=== PATIENT | female | born 1950 | race Hispanic/Latino ===

== ENCOUNTER 2017-06-17 16:46 | Inpatient (IN) | payer BC, MEDICARE ==
[2017-06-17 16:46] VITALS: BMI 26.7
--- NOTE | 2017-06-17 17:37 | ED PDOC ---
Arrival/HPI - General Chief Complaint: Dizziness/Lightheaded Time Seen by Provider: 06/17/17 17:36 Historian: Patient - History of Present Illness Narrative History of Present Illness (Text): 06/17/17 17:36 This 67 yo female with pmh hypotension, s/p gastric sleeve presents to this ED c/o syncope last night. Past Medical History - Infectious Disease Hx of Infectious Diseases: None - Tetanus Immunization Tetanus Immunization: Unknown - Reproductive Menopause: Yes - Past Medical History Past Medical History: No Previous - Cardiac Hx Hypertension: Yes - Pulmonary Hx Respiratory Disorders: Yes (Sarcoidosis) Hx Asthma: Yes Hx Sleep Apnea: Yes - Neurological Hx Transient Ischemic Attacks (TIA): Yes (x2) - HEENT Hx Cataracts: Yes (Removed from right eye with lens implant) - Renal Hx Renal Disorder: No - Endocrine/Metabolic Hx Diabetes Mellitus Type 2: Yes Hx Hypothyroidism: Yes Other/Comment: niddm - Hematological/Oncological Hx Blood Disorders: No - Integumentary Hx Dermatological Disorder: No - Musculoskeletal/Rheumatological Hx Musculoskeletal Disorders: Yes (Carpal tunnel) - Gastrointestinal Hx Gastrointestinal Disorders: No - Genitourinary/Gynecological Hx Genitourinary Disorders: No - Psychiatric Hx Psychophysiologic Disorder: Yes (Quit smoking 20yrs ago) Hx Anxiety: Yes Hx Depression: Yes Hx Substance Use: No - Surgical History Hx Section: Yes (x3) Hx Cholecystectomy: Yes Other/Comment: bilat carpal tunnel - Anesthesia Hx Anesthesia: Yes Hx Anesthesia Reactions: No Hx Malignant Hyperthermia: No - Suicidal Assessment Feels Threatened In Home Enviroment: No Family/Social History Smoking Status: Never Smoked Hx Alcohol Use: No Hx Substance Use: No Hx Substance Use Treatment: No Allergies/Home Meds Allergies/Adverse Reactions: Allergies No Known Allergies Allergy (Verified 06/17/17 17:07) Home Medications: Home Meds Medication Instructions Recorded Confirmed Rosuvastatin Calcium [Crestor] 10 mg PO DAILY 04/07/13 06/17/17 amLODIPine [Norvasc] 5 mg PO DAILY 03/25/14 06/17/17 Alprazolam [Xanax] 0.5 mg PO DAILY 06/17/17 06/17/17 Levothyroxine [Synthroid] 0.05 mcg PO DAILY 06/17/17 06/17/17 MetFORMIN [glucOPHAGE] 500 mg PO DAILY 06/17/17 06/17/17 Valsartan/Hydrochlorothiazide 1 each PO DAILY 06/17/17 06/17/17 [Diovan Hct 320-12.5 mg Tab] Physical Exam Vital Signs Temp Pulse Resp BP Pulse Ox 06/17/17 17:03 97.4 F L 76 16 80/52 L 96 Medical Decision Making ED Course and Treatment: 06/17/17 19:[address] Freeman who is covering for Dr. Suero. We reviewed labs, and chief complains. He agrees with admission for syncope. Re-evaluation Time: 21:24 Reassessment Condition: Re-examined, Improving,but remains with symptoms - Lab Interpretations Lab Results: 06/17/17 18:15 06/17/17 18:15 Lab Results 06/17/17 18:15: Sodium 139, Potassium 5.9 H* D, Chloride 104, Carbon Dioxide 23 , Anion Gap 19, BUN 36 H, Creatinine 1.9 H, Est GFR ( Amer) 32, Est GFR ( Non-Af Amer) 27, Random Glucose 95, Calcium 9.5, Total Bilirubin 0.2, AST 59 H, ALT 59 H, Alkaline Phosphatase 65, Lactate Dehydrogenase 395, Total Creatine Kinase 63, Troponin I < 0.01, NT-Pro-B Natriuret Pep 30.9, Total Protein 7.3, Albumin 4.5, Globulin 2.8, Albumin/Globulin Ratio 1.6 06/17/17 18:15: PT 10.2, INR 0.90 L, APTT 27.9 06/17/17 18:15: WBC 6.2, RBC 3.90, Hgb 11.7 L, Hct 34.9 L, MCV 89.5, MCH 30.0, MCHC 33.5, RDW 13.4, Plt Count 218, MPV 8.8, Gran % 61.4, Lymph % (Auto) 28.9, [place] % (Auto) 5.8, Eos % (Auto) 3.4, Baso % (Auto) 0.5, Gran # 3.83, Lymph # 1.8 , [place] # 0.4, Eos # 0.2, Baso # 0.03 06/17/17 17:29: POC Glucose (mg/dL) 82 I have reviewed the lab results: Yes Interpretation: Abnormal lab values - RAD Interpretation Narrative RAD Interpretations (Text): 06/17/17 21:19 [facility] Division of Radiology [address] [place] [address] Tel. no. Patient Name: RJ JOSHI Pt. Address: [address] [place] [address] Rec #: [id number] [place] [address]: Georgia Fried PA-C Pt Order Location: ED : 1950 Female Age: 67 Order #: [id number] Reason for exam: syncope CT Scan HEAD W/O CONTRAST Exam Date: 06/17/17 This imaging exam was performed at [facility] EXAM: CT Head Without Intravenous Contrast CLINICAL HISTORY: 67 years old, female; Pain; Headache; Headache not specified; Additional info: Syncope TECHNIQUE: Axial computed tomography images of the head/brain without intravenous contrast. All CT scans at this facility use one or more dose reduction techniques, viz.: automated exposure control; ma/kV adjustment per patient size (including targeted exams where dose is matched to indication; i.e. head); or iterative reconstruction technique. Coronal and sagittal reformatted images were created and reviewed. COMPARISON: No relevant prior studies available. FINDINGS: Brain: Mild atrophy. No intracranial hemorrhage. No mass. Few scattered foci of decreased attenuation within periventricular/subcortical white matter. No definite edema. Ventricles: No hydrocephalus. Bones/joints: No acute fracture. Soft tissues: Unremarkable. Sinuses: No acute sinusitis. Mastoid air cells: No mastoid effusion. Orbits: Unremarkable as visualized. IMPRESSION: 1. Nonspecific white matter changes. Acute infarction may be CT occult within first 24 hours. If a focal deficit persists, consider followup CT or MRI for further evaluation. 2. Incidental/non-acute findings are described above. Dictated By: Geronimo Cheema MD Dictated Date/Time: 06/17/172027 Signed By: Geronimo Cheema MD Date Signed: 2027 Transcribed By: GRACE Transcribe Date/Time : 06/17/172027 [id number] 06/17/17 21:20 Chest x-rays: NAD Radiology Orders: 06/17/17 19:07 HEAD W/O CONTRAST [CT] Stat CHEST PORTABLE [RAD] Stat - EKG Interpretation Interpreted by ED Physician: Yes (NSR @ [address] changes) Type: 12 lead EKG Comparison: No previous EKG avail. - Medication Orders Current Medication Orders: Albuterol Sulfate (Albuterol 0.5% Inhal Angela (2.5 Mg/0.5 Ml) Ud) 10 mg IH STAT STA Stop: 06/17/17 21:18 Alprazolam (Xanax) 0.5 mg PO DAILY PRN; Protocol PRN Reason: Anxiety Amlodipine Besylate (Norvasc) 5 mg PO DAILY MEJIA Dextrose (Dextrose 50% Inj) 50 ml IVP STAT STA Stop: 06/17/17 21:16 Hydrochlorothiazide (Microzide) 12.5 mg PO DAILY MEJIA Insulin Human Regular (Humulin R Low) 0 units SC ACHS MEJIA PRN Reason: Protocol Insulin Human Regular (Humulin R) 10 units SC ONCE ONE Stop: 06/17/17 21:18 Levothyroxine Sodium (Synthroid) 25 mcg PO DAILY MEJIA Sodium Polystyrene Sulfonate (Kayexalate Susp) 30 gm PO STAT STA Stop: 06/17/17 21:19 Valsartan (Diovan) 320 mg PO DAILY MEJIA Discontinued Medications Sodium Chloride (Sodium Chloride 0.9%) 1,000 mls @ 999 mls/hr IV .Q1H1M STA Stop: 06/17/17 20:07 Last Admin: 06/17/17 19:30 Dose: 999 mls/hr eMAR Start Stop Document 06/17/17 19:30 SF (Rec: 06/17/17 19:30 SF [id number]) Intravenous Solution Start Date 06/17/17 Start Time 19:30 End Date 06/17/17 End time 20:31 Total Infusion Time 61 Disposition/Present on Arrival - Present on Arrival Any Indicators Present on Arrival: No History of DVT/PE: No History of Uncontrolled Diabetes: No Urinary Catheter: No History of Decub. Ulcer: No History Surgical Site Infection Following: None - Disposition Have Diagnosis and Disposition been Completed?: Yes Diagnosis: Syncope, Hyperkalemia Disposition: HOSPITALIZED Disposition Time: 21:25 Patient Plan: Observation Condition: STABLE Discharge Instructions (ExitCare): Syncope (ED) Referrals: [facility], [Primary Care Provider] - Follow up with primary Forms: [employer] ([place])
[2017-06-17] MEDS ORDERED: Sodium Chloride 0.9% 1,000 ML IV STA (19:07)
[2017-06-17 19:37] LABS: BASO # 0.03 K/mm3 (0.0-2.0); BASO % 0.5 % (0.0-3.0); EOS # 0.2 (0.0-0.7); EOS % 3.4 % (1.5-5.0); GRAN # 3.83 (1.4-6.5); GRAN % 61.4 % (50.0-68.0); HEMOGLOBIN 11.7 g/dL (12.0-16.0); LYMPH # 1.8 (1.2-3.4); LYMPH % 28.9 % (22.0-35.0); MEAN CELL VOLUME 89.5 fl (80.0-105.0); MEAN CORPUSCULAR HGB CONC 33.5 g/dl (31.0-37.0); MEAN PLATELET VOLUME 8.8 fl (7.0-11.0); MONO # 0.4 (0.1-0.6); MONO % 5.8 % (1.0-6.0); RBC 3.9 10^6/uL (3.5-6.1); RED CELL DISTRIBUTION WIDTH 13.4 % (11.5-14.5); WHITE BLOOD COUNT 6.2 10^3/ul (4.5-11.0)
[2017-06-17 19:48] LABS: INR 0.9 (0.93-1.08); PARTIAL THROMBOPLASTIN TIME 27.9 Seconds (25.1-36.5); PROTHROMBIN TIME 10.2 SECONDS (9.4-12.5)
[2017-06-17 19:55] LABS: B-TYPE NATRIURETIC PEPTIDE 30.9 pg/mL (0-450); TROPONIN I < 0.01 ng/mL
[2017-06-17 19:57] LABS: ALB/GLOB RATIO 1.6 (1.1-1.8); ALBUMIN 4.5 g/dL (3.0-4.8); ALT/SGPT 59 U/L (7-56); AST/SGOT 59 U/L (14-36); BLOOD UREA NITROGEN 36 mg/dL (7-21); CALCIUM 9.5 mg/dL (8.4-10.5); GFR AFRICAN-AMERICAN 32; GFR NON-AFRICAN AMERICAN 27
--- NOTE | 2017-06-17 20:28 | CT ---
EXAM: CT Head Without Intravenous Contrast CLINICAL HISTORY: 67 years old, female; Pain; Headache; Headache not specified; Additional info: Syncope TECHNIQUE: Axial computed tomography images of the head/brain without intravenous contrast. All CT scans at this facility use one or more dose reduction techniques, viz.: automated exposure control; ma/kV adjustment per patient size (including targeted exams where dose is matched to indication; i.e. head); or iterative reconstruction technique. Coronal and sagittal reformatted images were created and reviewed. COMPARISON: No relevant prior studies available. FINDINGS: Brain: Mild atrophy. No intracranial hemorrhage. No mass. Few scattered foci of decreased attenuation within periventricular/subcortical white matter. No definite edema. Ventricles: No hydrocephalus. Bones/joints: No acute fracture. Soft tissues: Unremarkable. Sinuses: No acute sinusitis. Mastoid air cells: No mastoid effusion. Orbits: Unremarkable as visualized. IMPRESSION: 1. Nonspecific white matter changes. Acute infarction may be CT occult within first 24 hours. If a focal deficit persists, consider followup CT or MRI for further evaluation. 2. Incidental/non-acute findings are described above.
[2017-06-17] MEDS ORDERED: Dextrose 50% SYRINGE Inj (50 ml) IVP STA (21:15)
[2017-06-17] MEDS ORDERED: Albuterol 0.5% Inhal Sol (2.5 mg/0.5 ml) UD IH STA (21:17)
[2017-06-17] MEDS ORDERED: Insulin Regular 1 UNITS/0.01 ML ML SC ONE (21:17)
[2017-06-17] MEDS ORDERED: Sod Polystyrene Sulf 15 gm/60 ml Susp PO STA (21:18)
[2017-06-17 21:47] LABS: URINE BILIRUBIN NEGATIVE (NEGATIVE); URINE BLOOD NEGATIVE (NEGATIVE); URINE GLUCOSE (UA) NEGATIVE (NEGATIVE); URINE LEUKOCYTE ESTERASE MODERATE Leu/uL (NEGATIVE); URINE NITRATE NEGATIVE (NEGATIVE); URINE PROTEIN TRACE mg/dL (<30 mg/dL); URINE UROBILINOGEN 0.2 E.U./dL (<1 E.U./dL)
[2017-06-17] MEDS: Sodium Chloride 0.9% 1,000 ML IV SCH (21:51)
[2017-06-17 21:56] LABS: URINE APPEARANCE SL CLOUDY (CLEAR); URINE COLOR YELLOW (YELLOW)
[2017-06-17 22:09] LABS: URINE BACTERIA MOD (NEG); URINE EPITHELIAL CELLS 0 - 2 /hpf (0-5); URINE RBC 0 - 2 /hpf (0-2)
[2017-06-17] MEDS: Insulin Reg-LOW-Coverage SC SCH (23:05)
[2017-06-18] MEDS ORDERED: Sodium Chloride 0.9% 500 ML IV STA ×2 (06:42→09:32)
[2017-06-18] MEDS: Insulin Reg-LOW-Coverage SC SCH ×4 (07:49→21:11)
--- NOTE | 2017-06-18 08:52 | RAD ---
HISTORY: Syncope. Portable study 19:22 all COMPARISON: Yes 1 FINDINGS: LUNGS: No active pulmonary disease. PLEURA: No significant pleural effusion identified, no pneumothorax apparent. CARDIOVASCULAR: Normal. OSSEOUS STRUCTURES: No significant abnormalities. VISUALIZED UPPER ABDOMEN: Normal. OTHER FINDINGS: None. IMPRESSION: No active disease. Concordant results with the preliminary interpretation rendered by the emergency department physician procedure.
[2017-06-18] MEDS: Sodium Chloride 0.9% 1,000 ML IV SCH ×2 (09:35→21:04)
[2017-06-18] MEDS: Levothyroxine 25 MCG TAB PO SCH (09:36)
[2017-06-18 09:50] LABS: CALCIUM 8.4 mg/dL (8.4-10.5)
--- NOTE | 2017-06-18 12:30 | CARD ---
APPROVED REPORT EKG Measurement Heart [id number] <Conclusion> Normal sinus rhythm Low voltage QRS Borderline ECG
--- NOTE | 2017-06-18 18:45 | CON ---
DATE: 06/18/2017 NEUROLOGY CONSULTATION CHIEF COMPLAINT: Dizziness and lightheadedness. HISTORY OF PRESENT ILLNESS: This is a 67-year-old woman with a history of gastric sleeve, history of hypertension, history of sleep apnea, asthma, sarcoidosis of the lung, history of type 2 diabetes mellitus, history of carpal tunnel, history of hypothyroidism, who presented to the hospital because apparently she was having syncopal event last night, she was dizzy and lightheaded when getting up from sitting to a standing position. She had low systolic and diastolic blood pressure. When she came in, her blood pressure was 80/52. She has also orthostatic changes. Currently, I encouraged her to drink a lot of hydration, she does not drink any fluids at home. Currently, she follows all commands. She moves all extremities equally. No focal weakness on the extremities. MEDICATIONS: Reviewed by nurse per reconciliation sheet. She is on Xanax for underlying anxiety p.r.n. ALLERGIES: NO KNOWN DRUG ALLERGIES. PAST MEDICAL HISTORY: Hypertension, dyslipidemia, type 2 diabetes mellitus, hyperlipidemia, hypothyroidism. REVIEW OF SYSTEMS: A 14-point review of systems is negative except as per the HPI. SOCIAL HISTORY: No illicit drug use, smoking, or EtOH abuse. FAMILY HISTORY: Noncontributory. PHYSICAL EXAMINATION VITAL SIGNS: Temperature 97.8, pulse rate is 77, blood pressure 90/50, respiratory rate 20, and oxygen saturation 97% by room air. GENERAL: The patient is sitting up in bed, in no acute distress. HEENT: Head is atraumatic and normocephalic. PERRLA. Extraocular muscles intact. NECK: Supple. No JVD. No adenopathy noted. LUNGS: Clear to auscultation. No adventitious sounds. HEART: S1 and S2. Normal rate and rhythm. No murmurs, rubs, or gallops. ABDOMEN: Soft, nontender, nondistended. Bowel sounds present. EXTREMITIES: No clubbing, no cyanosis. Peripheral pulses are 2+ felt bilaterally. NEURO: The patient is alert and oriented to person, place, month and year. Speech is fluent without errors. Cranial nerves II through XII intact. Motor exam; moves all extremities equally. Toes are downgoing bilaterally. Sensory exam: Light touch, pinprick, proprioception, and vibration intact. DTRs are 2+ throughout. Coordination: [id number]-[id number] intact. Gait is deferred for now. LABORATORY DATA: Sodium is 140, potassium 5.2, chloride 109, carbon dioxide 21, BUN 24, creatinine 1.3, random glucose 103. ASSESSMENT AND PLAN: This is a 67-year-old woman with past medical history of hypothyroidism, type 2 diabetes mellitus, hypertension and history of gastric sleeve, who had a syncopal event. Her syncopal event was secondary to transient cerebral hypoperfusion to the brain from low systolic and diastolic blood pressures. At this time, I recommend, 1. Encourage fluid intake daily. 2. Monitor electrolytes and correct accordingly. 3. Keep blood sugars between 140 and 180. 4. Continue current present medical management. Thank you for this consult. She is clinically cleared from neuro. Valentin Freed MD
--- NOTE | 2017-06-19 05:02 | CON ---
DATE: 06/18/2017 LOCATION: The patient is in room 369, bed 1. REASON FOR CONSULTATION: Dizziness and syncope. HISTORY OF PRESENT ILLNESS: The patient is a 67-year-old female, admitted with at night, she felt dizzy and fell backward and the patient again prior to admission, she says that she found herself on the floor. Denies any palpitations, chest pain, shortness of breath, nausea, vomiting associated with these episodes. On arrival to emergency room, the patient blood pressure was 80/52; and later on, blood pressure in three positions, lying down 122/59, sitting is 118/60, standing is 107/51, suggestive of postural hypotension. The patient is now conscious, alert. Denies any dizziness. The patient is ambulating without any symptoms. PAST MEDICAL HISTORY: Positive for sarcoidosis, hypertension, diabetes mellitus, hypothyroidism, hyperlipidemia, asthma, and sleep apnea. PREVIOUS SURGICAL HISTORY: The patient had twice bariatric surgery about 3 years ago, the patient had cholecystectomy about 1 year ago, she had 3 c-sections, she had bilateral carpal tunnel surgery. PERSONAL HISTORY: She used to smoke about 4 packs a day, but stopped 26 years ago. Drinks rarely. ALLERGIES: THE PATIENT DENIES ANY ALLERGIES. LIST OF HOME MEDICATIONS: Crestor 10 mg daily, Norvasc 5 mg daily, Xanax 0.5 mg p.r.n., Synthroid 0.05 mg daily, metformin 500 mg daily, valsartan 320 mg with hydrochlorothiazide 12.5 mg p.o. daily. PREVIOUS CARDIAC WORKUP: The patient had echocardiogram on 04/11/2013, showed normal chamber sizes, EF 65%, trace mitral regurgitation, trace tricuspid regurgitation. Stress test on 12/26/2014 was negative for any ischemia, LV ejection fraction of 79%. PHYSICAL EXAMINATION: The patient, on examination, VITAL SIGNS: Blood pressure 117/57, respirations 19, pulse rate 65, and temperature 97.8. HEENT: Head is normocephalic. Eyes: Pupils normal. Conjunctivae normal. Nose and throat normal. NECK: JVP low. Carotids are equal. THORAX: AP diameter normal. She has abrasion scar seen on the chest from previous bypass surgery which is healing well. LUNGS: Clear. CARDIOVASCULAR: S1 and S2. ABDOMEN: Soft. Nontender. No organomegaly. Bowel sounds are normal. EXTREMITIES: No clubbing. No cyanosis. LABORATORY DATA: WBC 6.2, hemoglobin 11.7, hematocrit is 34.9, and platelet 218. Sodium 140, potassium 5.2, BUN 24, creatinine 1.3, repeat sugar 143. EKG showed normal sinus rhythm, low voltage QRS. Chest x-ray, no active disease. Head CAT scan, nonspecific white matter changes. DIAGNOSES: Dizziness, syncope probably due to hypotension and postural hypotension, history of sarcoidosis, hypertension, diabetes mellitus, hypothyroidism, hyperlipidemia, asthma, and sleep apnea. PLAN: The patient had stress test in 12/26/2014 was negative for ischemia, ejection fraction of 79%. Echocardiogram on 04/11/2013, normal chamber sizes, left ventricular ejection fraction of 65%, trace mitral regurgitation, trace tricuspid regurgitation. We will repeat echocardiogram. The patient is on albuterol and nebulizer therapy, Seroquel 100 mg p.o. at bedtime, sodium chloride 100 mL per hour, levothyroxine 25 mcg p.o. daily, alprazolam 0.5 mg p.o. daily p.r.n. Carotid and vertebral artery ultrasound has been requested. We will also do echocardiogram and we will recheck blood pressure in the morning. Once the blood pressure is stable, the patient will have nuclear test. We will follow with you. Nehal Catalan MD
[2017-06-19 06:34] LABS: MEAN CELL VOLUME 90.1 fl (80.0-105.0); MEAN CORPUSCULAR HEMOGLOBIN 29.5 pg (25.0-35.0); MEAN CORPUSCULAR HGB CONC 32.8 g/dl (31.0-37.0); MEAN PLATELET VOLUME 8.6 fl (7.0-11.0); RBC 3.22 10^6/uL (3.5-6.1); RED CELL DISTRIBUTION WIDTH 13.5 % (11.5-14.5); WHITE BLOOD COUNT 4.5 10^3/ul (4.5-11.0)
[2017-06-19 06:39] LABS: HEMOGLOBIN 9.5 g/dL (12.0-16.0)
[2017-06-19 06:44] LABS: ALB/GLOB RATIO 1.3 (1.1-1.8); ALBUMIN 3.1 g/dL (3.0-4.8); ALT/SGPT 63 U/L (7-56); AST/SGOT 54 U/L (14-36); BLOOD UREA NITROGEN 14 mg/dL (7-21); CALCIUM 8.7 mg/dL (8.4-10.5); GFR AFRICAN-AMERICAN > 60; GFR NON-AFRICAN AMERICAN 56; HDL CHOLESTEROL 67 mg/dL (29-60); MAGNESIUM 1.8 mg/dL (1.7-2.2)
[2017-06-19 06:54] LABS: LDL CHOLESTEROL 35 mg/dL (0-129)
--- NOTE | 2017-06-19 07:24 | PN ---
DATE: 06/19/2017 SUBJECTIVE: The patient has no complaints of any chest pain. No shortness of breath. No headaches or dizziness. PHYSICAL EXAMINATION: VITAL SIGNS: Temperature is 97.8, pulse of 61, blood pressure 117/57, respirations 19. GENERAL: The patient is lying in bed, flat, comfortable. HEENT: No oral lesion. Anicteric sclerae. Moist mucosa. NECK: No JVD, adenopathy, or thyromegaly. CARDIOVASCULAR: S1 and S2, regular. No murmurs, rubs, or gallops. LUNGS: Clear to auscultation bilaterally. No wheeze, rales, or rhonchi. ABDOMEN: Bowel sounds are positive, soft, nontender and nondistended. EXTREMITIES: No cyanosis, clubbing or edema. LABORATORY DATA: White count of 6.2, hemoglobin of 11.7. Creatinine is 1.3. ASSESSMENT: 1. Syncope. 2. Hypothyroidism. 3. History of sarcoidosis. 4. Dyslipidemia. PLAN: The patient is currently comfortable. She was seen by Dr. Freed and by Dr. Catalan. She has an echo and carotid Doppler that have been ordered and pending. The patient is on Synthroid for her hypothyroidism. She is on Xanax as needed. She is on Seroquel. She was seen by physical therapy. We will await the results of her testing. Arpan Lemus MD
[2017-06-19] MEDS: Insulin Reg-LOW-Coverage SC SCH ×4 (09:07→21:39)
[2017-06-19] MEDS: Levothyroxine 25 MCG TAB PO SCH (09:09)
[2017-06-19] MEDS: Sodium Chloride 0.9% 1,000 ML IV SCH ×2 (14:18→23:39)
--- NOTE | 2017-06-19 18:46 | CARD ---
APPROVED REPORT EXAM: Two-dimensional and M-mode echocardiogram with Doppler and color Doppler. INDICATION Syncope 2D DIMENSIONS Left Atrium (2D)4.0 (1.6-4.0cm)IVSd0.8 (0.7-1.1cm) LVDd3.9 (3.9-5.9cm)PWd0.9 (0.7-1.1cm) LVDs2.4 (2.5-4.0cm)FS (%) 37.3 % LVEF (%)68.0 (>50%) M-Mode DIMENSIONS Aortic Root3.00 (2.2-3.7cm)Aortic Cusp Exc.1.40 (1.5-2.0cm) Aortic Valve AoV Peak Ldwafrec194.0cm/Tony Peak GR.12mmHg Mitral Valve MV E Leuggjfe078.0cm/sMV A Cbebaiwb317.0cm/sE/A ratio0.9 TDI Lateral E' Peak V9.36cm/sMedial E' Peak V6.92cm/sE/Lateral E'12.7 E/Medial E'17.2 Pulmonary Valve PV Peak Byhxjmtw45.0cm/sPV Peak Grad.2mmHg Tricuspid Valve TR Peak [id number]/sRAP [id number] Peak Gr.32mmHg ATEF56niLm LEFT VENTRICLE The left ventricle is normal size. There is normal left ventricular wall thickness. The left ventricular function is normal.EF-65% There is normal LV segmental wall motion. Transmitral Doppler flow pattern is Grade III-reversible restrictive diastolic dysfunction. No left ventricle thrombus noted on this study. There is no ventricular septal defect visualized. There is no left ventricular aneurysm. There is no mass noted in the left ventricle. RIGHT VENTRICLE The right ventricle is normal size. There is normal right ventricular wall thickness. The right ventricular systolic function is normal. ATRIA The left atrium is borderline dilated. The right atrium size is normal. The interatrial septum is intact with no evidence for an atrial septal defect. AORTIC VALVE The aortic valve is thickened but opens well. There is trace aortic regurgitation. There is no aortic valvular stenosis. There is no aortic valvular vegetation. MITRAL VALVE The mitral valve is thickened but opens well. Mitral regurgitation is mild to moderate. There is no mitral valve stenosis. There is no evidence of mitral valve prolapse. TRICUSPID VALVE The tricuspid valve leaflets are thickened , but open well. There is mild to moderate tricuspid regurgitation.RVSP-42 mmof hg. There is no tricuspid valve stenosis. There is no tricuspid valve prolapse or vegetation. PULMONIC VALVE The pulmonary valve is normal in structure. There is trace pulmonic valvular regurgitation. There is no pulmonic valvular stenosis. GREAT VESSELS The aortic root is normal in size. The ascending aorta is normal in size. The pulmonary artery is normal. The IVC is normal in size and collapses >50% with inspiration. PERICARDIAL EFFUSION There is no pleural effusion. There is a trace pericardial effusion. <Conclusion> The left ventricle is normal size. There is normal left ventricular wall thickness. The left ventricular function is normal.EF-65% There is trace aortic regurgitation. There is no aortic valvular stenosis. Mitral regurgitation is mild to moderate. There is mild to moderate tricuspid regurgitation.RVSP-42 mmof hg. There is a trace pericardial effusion.
[2017-06-19 19:16] VITALS: RESP 20
--- NOTE | 2017-06-19 21:31 | PN ---
DATE: 06/19/2017 LOCATION: Patient is in room 369, bed 1. REASON FOR CONSULTATION: Dizziness and syncope. SUBJECTIVE: Patient is conscious and alert, moving all extremities. Denies chest pain, shortness or breath, or palpitations. Patient initially admitted with hypotension and postural hypotension. Now, she is asymptomatic. Patient is lying flat in bed without any chest pain, shortness of breath, or palpitations. PHYSICAL EXAMINATION VITAL SIGNS: Blood pressure is 120/68, blood pressure in three positions, lying down 105/47, sitting 116/60, standing 107/61 showing the postural hypotension has improved; respirations 20, pulse 64, temperature 97.5. HEENT: Head is normocephalic. Eyes, pupils normal. Conjunctivae slightly pale. NECK: JVP low. Carotids equal. THORAX: AP diameter normal. LUNGS: Clear. CARDIOVASCULAR: S1 and S2. ABDOMEN: Soft and nontender. No organomegaly. Bowel sounds normal. EXTREMITIES: No clubbing. No cyanosis. LABORATORY DATA: WBC 4.5, hemoglobin 9.5, hematocrit 29.0, platelets 183. Sodium 142, potassium 4.4, BUN 14, creatinine 1.0, sugar 79, glucose 89, calcium 8.7, magnesium 1.8, albumin 3.1, globulin 2.3. Echo done today showed normal size left ventricle, normal LV ejection fraction 65%, trace aortic regurgitation, xuzx-dj-zhqzypdu mitral regurgitation, mfuk-qh-jaaxrcda tricuspid regurgitation with RVSP 42 mmHg. Patient had stress test, 12/28/2014 negative for ischemia. DIAGNOSES: Dizziness, syncope, probably due to hypotension and postural hypotension, history of sarcoidosis, hypertension, diabetes mellitus, hypothyroidism, hyperlipidemia, asthma, sleep apnea. PLAN: Patient on Seroquel 100 mg at bedtime, getting normal saline IV therapy, Synthroid 25 mcg daily. Patient clinically with dizziness improved, postural hypotension also improved. We will follow with you. Nehal Catalan MD
--- NOTE | 2017-06-20 00:18 | US ---
PROCEDURE: Bilateral carotid artery duplex ultrasound HISTORY: Carotid stenosis PHYSICIAN(S): Neel Aguilar MD. TECHNIQUE: Duplex sonography and color-flow Doppler were used to evaluate the carotid bifurcations and limited segments of the vertebral arteries bilaterally. FINDINGS: There is mild to moderate smooth heterogeneous plaque noted at the carotid bifurcations bilaterally. The peak systolic velocity in the proximal right internal carotid artery is 122 cm/sec. This corresponds to a 40-59 percent proximal right ICA stenosis. Normal systolic velocities are noted in the proximal right external carotid artery. There is antegrade flow in the right vertebral artery. The peak systolic velocity in the proximal left internal carotid artery is 111 cm/sec. This corresponds to a 40-59 percent proximal left ICA stenosis. Normal systolic velocities are noted in the proximal left external carotid artery. There is antegrade flow in the left vertebral artery. IMPRESSION: 1. Bilateral 40-59 percent proximal ICA stenoses. 2. Antegrade flow in both vertebral arteries.
[2017-06-20 02:15] VITALS: BP 108/52; TEMP 97.6; O2SAT 97
[2017-06-20 06:24] VITALS: PULSE 59
[2017-06-20] MEDS: Insulin Reg-LOW-Coverage SC SCH (08:32)
--- NOTE | 2017-06-20 08:50 | PN ---
DATE: 06/20/2017 SUBJECTIVE: The patient has no complaints of any chest pain. No shortness of breath. No headaches or dizziness. PHYSICAL EXAMINATION: VITAL SIGNS: Temperature is 97.6, pulse is 64, blood pressure is 108/52, respirations 20. GENERAL: The patient is lying in bed, flat, comfortable. HEENT: No oral lesion. Anicteric sclerae. Moist mucosa. NECK: No JVD, adenopathy, or thyromegaly. CARDIOVASCULAR: S1 and S2, regular. No murmurs, rubs, or gallops. LUNGS: Clear to auscultation bilaterally. No wheeze, rales, or rhonchi. ABDOMEN: Bowel sounds are positive, soft, nontender and nondistended. EXTREMITIES: No cyanosis, clubbing or edema. LABORATORY DATA: White count 4.5, hemoglobin 9.5. Creatinine is 1.0. ASSESSMENT: 1. Syncope. 2. Hypothyroidism. 3. History of sarcoidosis. 4. Dyslipidemia. PLAN: The patient is on Seroquel. The patient is on IV fluids. I will discontinue the patient's IV fluids. She is on Synthroid for hypothyroidism. She is on a heart-healthy diet. She had an echocardiogram that did not show any significant abnormality. She is also seen by Dr. Bhagat and Dr. Catalan from Cardiology. The patient's EF of 55% on echo. There is [id number] tricuspid regurgitation. The patient will be discharged home today and follow up as an outpatient. CONDITION: Stable. ACTIVITY: Increase as tolerated. Arpan Lemus MD
[2017-06-20] MEDS: Levothyroxine 25 MCG TAB PO SCH (09:18)
--- NOTE | 2017-06-20 22:20 | PN ---
DATE: 06/20/2017 LOCATION: The patient is in room 369, bed 1. REASON FOR CONSULTATION: Dizziness and syncope. SUBJECTIVE: The patient is conscious, alert, moving all extremities. Denies any chest pain, shortness of breath, palpitations. The patient is up and around without any dizziness. The patient's initial dizziness was related hypotension as well as postural hypotension. PHYSICAL EXAMINATION VITAL SIGNS: Blood pressure is 108/52, respirations 20, pulse 64 and temperature 97.6. HEENT: Head is normocephalic. Eyes, pupils normal. Conjunctivae slightly pale. NECK: JVP low. Carotids equal. THORAX: AP diameter normal. LUNGS: Clear. CARDIOVASCULAR: S1 and S2. ABDOMEN: Soft and nontender. No organomegaly. Bowel sounds normal. EXTREMITIES: No clubbing. No cyanosis. LABORATORY DATA: WBC 4.5, hemoglobin 9.5, hematocrit 29.0 and platelets 183. Random sugar 78. Sodium 142, potassium 4.4, BUN 14, creatinine 1.0, total bilirubin 0.1, AST 54, ALT 63, total protein 5.4 and albumin 3.1. Echo showed normal LVEF 65%, trace aortic regurgitation, [id number]-wy-[id number] mitral regurgitation, [id number] tricuspid regurgitation with RVSP 42 mmHg. Stress test on 12/28/2014 was negative. DIAGNOSES: Dizziness, syncope it was probably related to hypotension as well as postural hypotension, history of sarcoidosis, hypertension, diabetes mellitus, hypothyroidism, hyperlipidemia, asthma, sleep apnea and anemia. PLAN: The patient is being planned to go home today. Her postural hypotension issue has been resolved. The patient is on Seroquel 100 mg at bedtime, Synthroid 25 mcg daily. The patient has been give instruction to follow, has nuclear stress test as outpatient. We will follow with you. Nehal Catalan MD
== END 2017-06-20 13:30 | disposition home or self-care (01) | DRG 312 ==
LOC: ED 16:46 → ERH 21:26 → 3RNO 23:23 → OBSVTOIN 06-19 16:57
PROVIDERS: ADMIT Internal Medicine; ATTEND Internal Medicine
DX: I95.1 Orthostatic hypotension (principal); E87.5 Hyperkalemia; W19.XXXA Unspecified fall, initial encounter; E03.9 Hypothyroidism, unspecified; E11.9 Type 2 diabetes mellitus without complications; E78.5 Hyperlipidemia, unspecified; G47.30 Sleep apnea, unspecified; I10 Essential (primary) hypertension; J45.909 Unspecified asthma, uncomplicated; D86.9 Sarcoidosis, unspecified; Z90.49 Acquired absence of other specified parts of digestive tract; Z98.84 Bariatric surgery status; Z87.891 Personal history of nicotine dependence; Z86.73 Personal history of transient ischemic attack (TIA), and cerebral infarction without residual deficits; Z79.899 Other long term (current) drug therapy; Z98.41 Cataract extraction status, right eye; Z96.1 Presence of intraocular lens; I07.1 Rheumatic tricuspid insufficiency